=== PATIENT | female | born 1945 | race Caucasian/White ===

== ENCOUNTER 2019-08-31 12:49 | Outpatient (CLI) | payer MEDICARE, SELFPAY ==
--- NOTE | 2019-08-31 | US_ITS ---
WS: [id number] ULTRASOUND LEFT BREAST HISTORY: ABNORMAL MAMMOGRAM, 6 month follow-up COMPARISON: 02/02/2019 TECHNIQUE: 2-D and Doppler. Ultrasound at 6:00, 3 cm from the nipple is a complex cystic mass or lymph node measuring 7 x 5 mm. S imilar in appearance and size as compared to the prior study. US/US breast LT limited* [id number] IMPRESSION: BI-RADS: 3-Probably Benign FOLLOW-UP: 6 Month Follow-up Patient to return for annual mammographic imaging in December 2019. Ultrasound im aging of the LEFT breast matched adult also be obtained at that time.
== END 2019-08-31 12:50 | disposition home or self-care (01) ==
LOC: RAD 12:55
PROVIDERS: Family Provider Family Medicine; PCP Family Medicine; Visit Provider Family Medicine
DX: R92.8 Other abnormal and inconclusive findings on diagnostic imaging of breast (principal)
CPT/HCPCS: 76642

== ENCOUNTER 2020-03-07 08:45 | Outpatient (CLI) | payer MEDICARE, SELFPAY ==
--- NOTE | 2020-03-07 08:56 | MM_ITS ---
WS: [id number] DIAGNOSTIC BILATERAL DIGITAL MAMMOGRAM WITH CAD LEFT breast ultrasound, limited HISTORY: ABNORMAL Mammogram; mass/nodule 7X5MM COMPARISON: 02/02/2019, 01/18/2019 and 12/10/2017 and 08/31/2019 TECHNIQUE: Bilateral craniocaudad, mediolateral oblique, and mediolateral views are submitted. Spot c ompression LEFT CC. Computer aided detection utilized. Breast composition: There are scattered areas of fibroglandular density. Persistent 6 mm nodule in th e middle portion of the LEFT breast near 6:00. Slightly decreased in size since the prior study. No a dditional nodules. Benign calcifications in each breast. LEFT breast ultrasound, limited. Complex cystic nodule LEFT breast 6:00, 3 cm from the nipple is again identified. Nodule contains a t hin septation. No interval change. Complex cyst versus benign lymph node. MM/[place] [id number] IMPRESSION: BI-RADS: 2-Benign FOLLOW UP: 1 Year Follow-up
== END 2020-03-07 08:46 | disposition home or self-care (01) ==
LOC: RADSHAW 08:51
PROVIDERS: PCP Family Medicine; Visit Provider Family Medicine
DX: R92.8 Other abnormal and inconclusive findings on diagnostic imaging of breast (principal); N63.25 Unspecified lump in the left breast, overlapping quadrants
CPT/HCPCS: 76642; 77066

== ENCOUNTER 2021-06-17 14:09 | Outpatient (CLI) | payer MEDICARE, SELFPAY ==
--- NOTE | 2021-06-17 14:19 | MM_ITS ---
WS: [id number] SCREENING DIGITAL MAMMOGRAM WITH CAD HISTORY: SCREENING COMPARISON: 03/07/2020, 02/02/2019, 01/20/2019 and 12/10/2017 Bilateral CC and MLO views submitted. Computer aided detection analyzed. Breast composition: There are scattered areas of fibroglandular density. There is a new asymmetry aspen suring 5 mm in the lateral LEFT breast. This may be in the central breast on the lateral projection. Stable 7 mm nodule at the 6:00 axis. Benign calcifications. MM/[place] [id number] IMPRESSION: BI-RADS: 0-Incomplete: Need additional imaging evaluation FOLLOW UP: Need Additional Imaging LEFT breast: Spot compression views (CC ). True ML. Ultrasound to follow if abn ormality persists.
--- NOTE | 2021-06-17 14:44 | XR_ITS ---
WS: [id number] SCREENING DEXA SCAN [employer] CLINICAL INFORMATION: POSTMENOPAUSAL COMPARISON: December 09, 2018 FINDINGS: The L1-L4 bone mineral density measures 1.005 g/cm2. This corresponds to a T score score of -1.5 and Z score of 0.0. Left femoral neck bone mineral density measures 0.774 g/cm2. This corresponds to a T score of -1.9 an d Z score of -0.4. Right femoral neck bone mineral density measures 0.761 g/cm2. This corresponds to a T score -2.0of an d Z score of -0.5. Mean femoral neck bone mineral density measures 0.768 g/cm2. This corresponds to a T score of -1.9 an d Z score of -0.4. XR/XR DEXA axial skeleton* [id number] IMPRESSION: Osteopenia Patient's FRAX calculated 10 year probability for major osteoporotic fracture i s 11.7 % and osteoporotic hip fracture is 2.4%.
== END 2021-06-17 14:10 | disposition home or self-care (01) ==
LOC: RADSHAW 14:15
PROVIDERS: PCP Family Medicine; Visit Provider Nurse Practitioner Family
DX: Z12.31 Encounter for screening mammogram for malignant neoplasm of breast (principal); Z78.0 Asymptomatic menopausal state; M85.80 Other specified disorders of bone density and structure, unspecified site
CPT/HCPCS: 77067; 77080

== ENCOUNTER 2021-07-02 09:48 | Outpatient (CLI) | payer MEDICARE, SELFPAY ==
--- NOTE | 2021-07-02 09:56 | US_ITS ---
WS: [id number] ADDITIONAL VIEWS LEFT MAMMOGRAM LEFT BREAST ULTRASOUND HISTORY: ABNORMAL MAMMOGRAM COMPARISON: 06/17/2021, 03/07/2020, 02/02/2019 LEFT MAMMOGRAM: Spot compression views and true ML. Slightly ovoid nodule in the lateral LEFT breast persists on additional imaging. This nodule measures approximately 5 mm near the 3:00 axis. Ultrasound to follow. LEFT BREAST ULTRASOUND 2-D and color Doppler imaging submitted. At 3:00, 4 cm from the nipple is an ovoid cyst measuring 6 x 6 x 3 mm. This does correspond in size, location and shape to the mammographic abnormality. No solid mass. US/US breast LT limited* [id number] IMPRESSION: BI-RADS: 2-Benign FOLLOW UP: 1 Year Follow-up
== END 2021-07-02 09:49 | disposition home or self-care (01) ==
LOC: RADSHAW 09:50
PROVIDERS: PCP Family Medicine; Visit Provider Family Medicine
DX: R92.8 Other abnormal and inconclusive findings on diagnostic imaging of breast (principal); N63.25 Unspecified lump in the left breast, overlapping quadrants
CPT/HCPCS: 76642; 77065

== ENCOUNTER 2021-09-04 10:32 | Outpatient (RCR) | payer MEDICARE, SELFPAY | END 2021-09-28 23:59 | disposition home or self-care (01) | LOC: SPT 10:32 | PROVIDERS: PCP Family Medicine; Referring Provider Family Medicine; Visit Provider Family Medicine | DX: N81.9 Female genital prolapse, unspecified (principal) | CPT/HCPCS: 97110; 97161; 97530 ==

== ENCOUNTER 2021-09-29 06:00 | Outpatient (RCR) | payer MEDICARE, SELFPAY | END 2021-10-29 23:59 | disposition home or self-care (01) | LOC: SPT 06:00 | PROVIDERS: PCP Family Medicine; Referring Provider Family Medicine; Visit Provider Family Medicine | DX: N81.9 Female genital prolapse, unspecified (principal) | CPT/HCPCS: 97110; 97530 ==

== ENCOUNTER 2022-07-23 10:06 | Outpatient (CLI) | payer MEDICARE, SELFPAY ==
--- NOTE | 2022-07-23 10:18 | MM_ITS ---
WS: [id number] BILATERAL SCREENING DIGITAL TOMOSYNTHESIS MAMMOGRAM WITH CAD HISTORY: SCREENING COMPARISON: 07/02/2021, 06/17/2021 and 01/18/2019 Bilateral CC and MLO views with tomosynthesis and synthetic mammography submitted. Computer aided det ection analyzed. Breast composition: There are scattered areas of fibroglandular density. No suspicious masses, microc alcifications or architectural distortion. Stable 6 mm along the medial LEFT breast as seen on prior studies. No increase in size. Benign calcifications scattered throughout the LEFT breast. MM/[place] [id number] IMPRESSION: BI-RADS: 2-Benign FOLLOW UP: 1 Year Follow-up
== END 2022-07-23 10:07 | disposition home or self-care (01) ==
LOC: RAD 10:10
PROVIDERS: PCP Family Medicine; Visit Provider Family Medicine
DX: Z12.31 Encounter for screening mammogram for malignant neoplasm of breast (principal)
CPT/HCPCS: 77063; 77067

== ENCOUNTER 2023-07-27 10:19 | Outpatient (CLI) | payer MEDICARE, SELFPAY ==
--- NOTE | 2023-07-27 10:21 | MM_ITS ---
WS: [email or web address] VIEWS: MLO and CC views both breasts. 3D digital tomosynthesis is also included in this exam. Comparison made with prior exam of 01/20/2019, 03/07/2020, 06/17/2021, 07/23/2022.. Findings: There was no sign of mass, architectural distortion or suspicious calcification in either breast. The re are scattered areas of fibroglandular density Impression: MM/[place] [id number] BI-RADS: 1-Negative FOLLOW-UP: 1 Year Follow-up This mammogram was also analyzed by the Computer Aided Detection System R2 Imag e Pyrotechnician.
== END 2023-07-27 10:20 | disposition home or self-care (01) ==
PROVIDERS: PCP Family Medicine; Visit Provider Family Medicine
DX: Z12.31 Encounter for screening mammogram for malignant neoplasm of breast (principal); R92.323 Mammographic fibroglandular density, bilateral breasts
CPT/HCPCS: 77063; 77067

== ENCOUNTER 2024-07-29 13:18 | Outpatient (CLI) | payer MEDICARE, SELFPAY ==
--- NOTE | 2024-07-29 13:37 | MM_ITS ---
WS: [id number] Bilateral screening 3D tomosynthesis digital mammogram, 07/29/2024 1:38 PM Clinical Data: SCREENING Comparison: 07/27/2023, 07/23/2022, 07/02/2021, 06/17/2021, 03/07/2020 02/02/2019, 01/20/2019, 12/10/2017, 11/08/2014, 04/01/2012, 01/29/2011, 01/03/2010, 01/03/2009, 12/20/2007. Findings: No spiculated masses or clustered calcifications are seen. There are no secondary signs of carcinoma. MM/MM scr BI tomosynthesis [id number] Impression: Negative bilateral mammogram unchanged. Recommend annual screening mammograms. BIRADS: 1 - Negative. FOLLOW UP: 1 Year Follow-up DENSITY: There are scattered areas of fibroglandular density. The CAD loom stop checker was used
== END 2024-07-29 13:19 | disposition home or self-care (01) ==
LOC: RAD 13:20
PROVIDERS: PCP Family Medicine; Visit Provider Family Medicine
DX: Z12.31 Encounter for screening mammogram for malignant neoplasm of breast (principal); R92.323 Mammographic fibroglandular density, bilateral breasts
CPT/HCPCS: 77063; 77067

== ENCOUNTER → 2024-10-19 07:55 | Outpatient (BNVA) | payer MEDICARE, SELFPAY | PROVIDERS: PCP Family Medicine; Visit Provider Podiatrist Foot & Ankle Surgery | DX: M79.672 Pain in left foot (principal); M21.611 Bunion of right foot; M21.612 Bunion of left foot; M20.41 Other hammer toe(s) (acquired), right foot; M20.42 Other hammer toe(s) (acquired), left foot; E11.69 Type 2 diabetes mellitus with other specified complication; M21.42 Flat foot [pes planus] (acquired), left foot; Z79.84 Long term (current) use of oral hypoglycemic drugs | CPT/HCPCS: 73630; 99204 ==

== ENCOUNTER 2024-11-18 10:29 | Outpatient (CLI) | payer MEDICARE, SELFPAY | END 2024-11-18 10:30 | disposition home or self-care (01) | LOC: SPT 10:30 | PROVIDERS: PCP Family Medicine; Visit Provider Podiatrist Foot & Ankle Surgery | DX: Z46.89 Encounter for fitting and adjustment of other specified devices (principal); M20.41 Other hammer toe(s) (acquired), right foot; M20.42 Other hammer toe(s) (acquired), left foot; M21.611 Bunion of right foot; M21.612 Bunion of left foot | CPT/HCPCS: L3030 ==